=== PATIENT | male | born 1935 | race Caucasian/White ===

== ENCOUNTER → 2021-07-31 08:03 | Outpatient (CLI) | payer MEDICARE, SELFPAY ==
--- NOTE | ~2021-07-31 | XR_ITS ---
EXAMINATION: XR chest 2V DATE: 07/31/2021 12:45 INDICATION: Chest pain TECHNIQUE: PA and lateral views of the chest are obtained. COMPARISON: None available FINDINGS: The lungs are free of acute opacities. There are trace pleural effusions. No pneumothorax i s identified. Cardiomegaly is noted. 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 There is moderate thoracic spondylosis. IMPRESSION: 1. Cardiomegaly. 2. Trace pleural effusions. Reviewed, dictated and finalized at location F. [employer]
== END ==
PROVIDERS: PCP Internal Medicine; Visit Provider Internal Medicine
DX: R07.9 Chest pain, unspecified (principal); I51.7 Cardiomegaly; J90 Pleural effusion, not elsewhere classified
CPT/HCPCS: 71046

== ENCOUNTER 2021-08-25 12:50 | Outpatient (CLI) | payer MEDICARE, SELFPAY ==
--- NOTE | 2021-08-25 12:59 | ECG_ITS ---
Measurements Intervals [place] Rate: 84 P: AR: 0 QRS: -2 QRSD: 81 T: 35 QT: 374 QTc: 444 Interpretive Statements SINUS RHYTHM SHORT AR INTERVAL ABNORMAL ECG NO PREVIOUS ECG AVAILABLE FOR COMPARISON Electronically Signed On 08-25-2021 14:21:49 CDT by Shravan Small M.D.
== END 2021-08-25 12:51 | disposition home or self-care (01) ==
LOC: ANHCARD 12:55
PROVIDERS: PCP Internal Medicine; Visit Provider Nurse Practitioner
DX: R07.89 Other chest pain (principal); I48.91 Unspecified atrial fibrillation
CPT/HCPCS: 93005

== ENCOUNTER 2021-09-20 12:42 | Outpatient (CLI) | payer MEDICARE, SELFPAY ==
--- NOTE | ~2021-09-20 | XR_ITS ---
EXAM: XR_RIBSBI_CR HISTORY: Continued left sided rib pain X2 MNTHS COMPARISON: 07/31/2021. FINDINGS: No suspicious lung lesion. Severe right glenohumeral osteoarthritis. Chronic left costophr enic angle blunting. Decreased mineralization. No acute fracture or dislocation. IMPRESSION: No acute osseous finding in the bilateral ribs. Small left pleural effusion versus chronic pleural sc arring. Reviewed, dictated and finalized at location K. IMPRESSION: No acute osseous finding in the bilateral ribs. Small left pleural effusion dhara qamar chronic pleural scarring.
--- NOTE | 2021-09-20 12:57 | ECHO_ITS ---
Patient Info Name: Stephen Sun Age: 86 years : 1935 Gender: Male Ht: 70 in Wt: 153 lbs BSA: 1.85 m2 HR: 69 bpm BP: 158 / 90 mmHg Technical Quality: Good Exam Date: 09/20/2021 1:15 PM Exam Location: [facility] Patient Status: Outpatient Admit Date: 09/20/2021 Staff Ordering Physician: Mariela Saldaña NP Cloth Measurer: Avinash Ford RDCS, RT Attending Provider: Mariela Saldaña NP Referring Physician: Piotr QIU; Exam Type: CA echo doppler color flow Study Info Indications R94.31 - Abnormal electrocardiogram ECG EKG Complete two-dimensional, color flow and Doppler transthoracic echocardiogram is performed. Strain analysis performed. Summary 1. Complete two-dimensional, color flow and Doppler transthoracic echocardiogram is performed. 2. Left ventricular chamber dimension is normal. 3. Left ventricular systolic function is normal, estimated at 60-65%. 4. The left ventricular diastolic function is normal. 5. E/e' 8 is minimally elevated. 6. Global longitudinal strain is mildly abnormal at -16.3%. 7. There is mild to moderate mitral valve regurgitation. 8. There is mild tricuspid valve regurgitation. 9. No pulmonary hypertension, estimated pulmonary arterial systolic pressure is 37 mmHg. 10. There is trace pulmonic regurgitation. Left Ventricle E/e' 8 is minimally elevated. Global longitudinal strain is mildly abnormal at -16.3%. Left ventricular chamber dimension is normal. Left ventricular systolic function is normal, estimated at 60-65%. The left ventricular diastolic function is normal. Right Ventricle Right ventricular systolic function is normal and with normal TAPSE 2.4 cm. Right ventricular chamber dimension is normal. Left Atria Left atrial chamber dimension is normal. Right Atria Right atrial chamber dimension is normal. Aortic Valve The aortic valve is trileaflet. There is no aortic valve stenosis. There is no aortic valve regurgitation. Pulmonic Valve There is trace pulmonic regurgitation. Mitral Valve There is no mitral valve stenosis. There is mild to moderate mitral valve regurgitation. Tricuspid Valve There is mild tricuspid valve regurgitation. No pulmonary hypertension, estimated pulmonary arterial systolic pressure is 37 mmHg. Pericardium/Pleural There is no pericardial effusion. Inferior Vena Cava Normal inferior vena cava with >50% collapse upon inspiration consistent with normal right atrial pressure, 5 mmHg. Aorta The aortic root size at the sinus of Valsalva is normal. Left Ventricular Outflow Tract Name Value Normal LVOT 2D LVOT Diameter 2.0 cm LVOT Doppler LVOT Peak Gradient 5 mmHg LVOT Mean Gradient 3 mmHg LVOT VTI 22 cm LVOT VTI/AV VTI Ratio 0.7 LVOT Stroke Volume 70 ml LVOT CO 4.6 l/min LVOT CI 2.5 l/min/m2 Mitral Valve Na
== END 2021-09-20 12:43 | disposition home or self-care (01) ==
PROVIDERS: PCP Internal Medicine; Visit Provider Nurse Practitioner
DX: R94.31 Abnormal electrocardiogram [ECG] [EKG] (principal); R07.81 Pleurodynia; J90 Pleural effusion, not elsewhere classified
CPT/HCPCS: 71110; 93306

== ENCOUNTER 2021-09-30 08:49 | Outpatient (CLI) | payer MEDICARE, SELFPAY ==
--- NOTE | ~2021-09-30 | CT_ITS ---
EXAMINATION: CT abdomen wo con DATE: 09/30/2021 09:29 INDICATION: Left upper quadrant abdominal pain radiating to back TECHNIQUE: Computed tomography (CT) of the abdomen was performed without intravenous contrast. Automated exposure control and iterative r econstruction technique were employed. Exam dose: 188.27 mGy-cm total exam DLP. COMPARISON: July 31, 2021 2 view chest FINDINGS: Greater than 5 cm malignant mass lesion versus round consolidation of left lower lobe. The re is mild left pleural effusion. Left basilar left lower lobe atelectasis. Cardiomegaly. Coronary artery calcification. No pericardial effusion. There is mild discoid atelectasis or scarring in the right lower lobe. No right pleural effusion. There are multiple stones in the dependent aspect of the gallbladder. No gallbladder wall thickening or pericholecystic fluid or fat stranding is noted. The liver, spleen, pancreas, adrenal glands and kidneys are unremarkable on this limited noncontrast examination. There is atherosclerotic calcification of the abdominal aorta and iliac arteries but no abdominal aor tic aneurysm. No intraperitoneal or retroperitoneal mass lesion or adenopathy or ascites is detected. 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 Moderately severe degenerative disc disease at L3-4. Probable prominent Schmorl's node at inferior L2. Degenerative changes of the lower thoracic spine. IMPRESSION: Prominent 5 cm malignant mass versus round consolidation of left lower lobe, mild left p leural effusion Right basilar left lower lobe c atelectasis. Reviewed, dictated and finalized at Location A. Reviewed, dictated and finalized at location A. IMPRESSION: Prominent 5 cm malignant mass versus round consolidation of left l ower lobe, mild left pleural effusion Right basilar left lower lobe c atelectasis.
== END 2021-09-30 08:50 | disposition home or self-care (01) ==
LOC: ANHIMG 08:51
PROVIDERS: PCP Internal Medicine; Visit Provider Internal Medicine
DX: R10.9 Unspecified abdominal pain (principal); I25.10 Atherosclerotic heart disease of native coronary artery without angina pectoris; I51.7 Cardiomegaly; M47.817 Spondylosis without myelopathy or radiculopathy, lumbosacral region; J90 Pleural effusion, not elsewhere classified; M51.46 Schmorl's nodes, lumbar region
CPT/HCPCS: 74150

== ENCOUNTER 2021-10-07 13:19 | Outpatient (CLI) | payer MEDICARE, SELFPAY ==
--- NOTE | ~2021-10-07 | CT_ITS ---
EXAMINATION: CT diagnostic chest w con DATE: 10/07/2021 13:47 INDICATION: Lung mass TECHNIQUE: Transaxial computed tomographic images of the chest were obtained after the administration of 75 cc of Omnipaque 350 intravenous contrast. The dose-length product (DLP) was 237.73 mGy-cm. Ite rative reconstruction was used. COMPARISON: 07/31/2021 FINDINGS: There is a 6.8 x 6.1 cm mass of the left lower lobe. The mass invades the left chest wall i nsinuating itself between the left seventh and eighth ribs posteriorly. There is a small amount of er osion in the undersurface of the left seventh rib. There is a moderate-sized left pleural effusion. T here is passive atelectasis of the left lung adjacent to the pleural effusion and mass. The heart siz e is normal. There is no pneumothorax. There is moderate thoracic spondylosis. Cholelithiasis is note d. IMPRESSION: 1. 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 2. Moderate-sized left pleural effusion. Reviewed, dictated and finalized at location B. IMPRESSION: 1. 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 2. Moderate-sized left pleural effusion.
[2021-10-07 13:41] LABS: Estimated Glomerular Filt Rate > 60
== END 2021-10-07 13:20 | disposition home or self-care (01) ==
PROVIDERS: PCP Internal Medicine; Visit Provider Internal Medicine
DX: R91.8 Other nonspecific abnormal finding of lung field (principal); J90 Pleural effusion, not elsewhere classified
CPT/HCPCS: 71260; Q9967